=== PATIENT | female | born 1980 | race Two or more races ===

== ENCOUNTER 2017-07-06 14:04 | Emergency (ER) | payer MEDICAID, OTHER ==
[~2017-07-06] VITALS: Ht 157.5 cm; Wt 61.2 kg
[~2017-07-06 14:04] MED LIST: ACETAMINOPHEN-1 EAC1 ORAL; ALBUTEROL SULF8.5 GM INH; CYCLOBENZAPRINE10 MG ORAL; IBUPROFEN600 MG ORAL; NKM; NYSTATIN OINT15 GM TOPIC; PENICILLIN V P500 MG PO; PREDNISONE20 MG ORAL; PRILOSEC20 MG ORAL; PROMETHAZINE-C118 M1 ORAL; ZITHROMAX250 MG ORAL
[2017-07-06 14:18] VITALS: BP 103/67
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
[2017-07-06 14:50] VITALS: BP 103/67
== END 2017-07-06 14:50 | disposition home or self-care (01) ==
LOC: EMR 14:40
DX: M79.602 Pain in left arm (principal); F17.200 Nicotine dependence, unspecified, uncomplicated; Z83.3 Family history of diabetes mellitus; R07.9 Chest pain, unspecified
CPT/HCPCS: 82962; 93005; 99282

== ENCOUNTER 2017-12-26 19:00 | Emergency (ER) | payer MEDICAID ==
[~2017-12-26] VITALS: Ht 165.1 cm; Wt 59.0 kg
[2017-12-26 19:45] VITALS: BP 110/67
--- NOTE | 2017-12-26 20:24 | Emergency Room Report ---
History of Present Illness General Chief Complaint: Upper Respiratory Illness Source: Patient Present Illness HPI 37 YO Female presents to the ED c/o cough congestion body-aches, subjective fevers with chills and headaches x 2 days. Pt reports nasal and ear pressure. reports mother was ill contact who also got her son sick. Pt reports 9/[address] Denies measured high fevers, lethargy, neck pain/stiffness, irritability, photophobia dehydration, N/V/D. Denies Cp, Palpitations, LOC, AMS , seizures, paresthesias, or changes in Hearing or vision, no Sudden severe HUA. Pt. reports she did not receive Flu vaccination this year. Allergies: Coded Allergies: PENICILLINS (Verified Allergy, Intermediate, 12/26/17) Patient History Past Medical History: see triage record Past Surgical History: none Pertinent Family History: none Now: No Reviewed Nursing Documentation: PMH: Agreed, PSxH: Agreed Nursing Documentation-PMH Past Medical History: No Stated History Hx Asthma: No - BRONCHITIS Review of Systems All Other Systems: negative except mentioned in HPI Physical Exam Vital Signs Date Time Temp Pulse Resp B/P (MAP) Pulse Ox O2 Delivery O2 Flow Rate FiO2 12/26/17 19:16 99.8 99 16 110/67 99 Room Air 99.9 Sp02 EP Interpretation: reviewed, normal General Appearance: no apparent distress, alert, GCS 15, non-toxic Head: normocephalic, atraumatic ENT: hearing grossly normal, normal voice, TMs + canals normal, uvula midline, moist mucus membranes, nasal congestion, pharyngeal erythema, other - no tonsillar exudates. Neck: full range of motion, no meningismus, no bony tend Respiratory: chest non-tender, lungs clear, normal breath sounds, speaking full sentences Cardiovascular #1: regular rate, rhythm Musculoskeletal: back normal, gait/station normal, normal range of motion, non- tender Neurologic: alert, oriented x3, responsive, motor strength/tone normal, sensory intact, speech normal, grossly normal Psychiatric: judgement/insight normal Skin: normal color, no rash, warm/dry, well hydrated Lymphatic: no adenopathy Medical Decision Making PA Attestation Dr. Smith is my supervising physician whom pt. management has been discussed with. Diagnostic Impression: Primary Impression: Upper respiratory infection, viral ER Course 37 YO Female presents to the ED c/o cough congestion body-aches, subjective fevers with chills and headaches x 2 days. Pt reports nasal and ear pressure. reports mother was ill contact who also got her son sick. Pt reports 9/[address] Denies measured high fevers, lethargy, neck pain/stiffness, irritability, photophobia dehydration, N/V/D. Denies Cp, Palpitations, LOC, AMS , seizures, paresthesias, or changes in Hearing or vision, no Sudden severe HUA. Pt. reports she did not receive Flu vaccination this year. Ddx considered but are not limited to URI, pneumonia, PE, strep pharyngitis, meningitis, flu just to name a few. Vital signs: Pt. is afebrile, the remaining VS are WNL H&PE are most consistent with URI- no meningeal signs, oropharynx is not involved, no evidence of bacterial infection at this time. ORDERS: none required at this time, the diagnosis is clinical ED INTERVENTIONS: None required at this time. --PT. EDUCATION: Discussed antibiotic resistance with inappropriate prescribing of antibiotics for viral illnesses. Discussed signs and symptoms to indicate viral illness versus bacterial illness. DISCHARGE: At this time pt. is stable for d/c to home. Will provide printed patient care instructions, and any necessary prescriptions. Care plan and follow up instructions have been discussed with the patient prior to discharge. Last Vital Signs Date Time Temp Pulse Resp B/P (MAP) Pulse Ox O2 Delivery O2 Flow Rate FiO2 12/26/17 19:45 99.9 99 16 110/67 99 Room Air 99.9 Disposition: HOME, SELF-CARE Condition: Stable Scripts Guaifenesin (Guaifenesin) 1,200 Mg Tab.er.12h 1200 MG PO BID for 10 Days, #20 TAB Prov: Ratna Oneal P.A. 12/26/17 Acetaminophen* (TYLENOL EXTRA STRENGTH*) 500 Mg Tablet 500 MG ORAL Q6H Y for Mild Pain/Temp > 100.5, #20 TAB 0 Refills Prov: Ratna Oneal P.A. 12/26/17 Oxymetazoline HCl (Afrin) 15 Ml Elrama 2 SPRAY NASAL TWICE A DAY, #15 SPRAY DO NOT USE FOR MORE THAN 3 CONSECUTIVE DAYS. Prov: Ratna Oneal P.A. 12/26/17 Codeine/Promethazine Hcl* (PROMETHAZINE-CODEINE SYRUP*) 118 Ml Syrup 5 ML ORAL Q6H Y for For Cough, #120 ML 0 Refills Prov: Ratna Oneal 12/26/17 Patient Instructions: Upper Respiratory Infection, Adult Additional Instructions: Take medications as directed. Follow up with a Primary Care Provider in 3-5 days, even if your symptoms have resolved. --Please review list of primary care clinics, if you do not already have a primary care provider Return sooner to ED if new symptoms occur, or current symptoms become worse. Do not drink alcohol, drive, or operate heavy machinery while taking Cough Syrup as this may cause drowsiness. - Please note that this Emergency Department Report was dictated using [employer] calibrator technology software, occasionally this can lead to erroneous entry secondary to interpretation by the dictation equipment. Ratna Onela Dec 26, 2017 20:24
[2017-12-26] MEDS ORDERED: TYLENOL EXTRA500 MG ORAL (20:27)
[2017-12-26] MEDS ORDERED: PROMETHAZINE-C118 M1 ORAL (20:27)
[2017-12-26] MEDS ORDERED: AFRIN NASAL SPR30 ML NASAL (20:27)
[2017-12-26] MEDS ORDERED: GUAIFENESIN1200 MG PO (20:27)
[2017-12-26 20:45] VITALS: BP 110/67
== END 2017-12-26 21:00 | disposition home or self-care (01) ==
LOC: EMR 20:54
DX: J06.9 Acute upper respiratory infection, unspecified (principal); Z88.0 Allergy status to penicillin
CPT/HCPCS: 99284

== ENCOUNTER 2018-05-22 19:23 | Emergency (ER) | payer MEDICAID ==
[~2018-05-22] VITALS: Ht 157.5 cm; Wt 61.7 kg
[~2018-05-22 19:23] MED LIST changes: +AFRIN NASAL SPR30 ML NASAL; +GUAIFENESIN1200 MG PO; +TYLENOL EXTRA500 MG ORAL
[2018-05-22 19:48] VITALS: BP 99/68
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
[2018-05-22] MEDS ORDERED: LIDODERM700 M1 TOPIC (20:50)
[2018-05-22] MEDS ORDERED: ROBAXIN500 MG PO (20:50)
[2018-05-22] MEDS ORDERED: ZOFRAN ODT8 MG ORAL (20:50)
--- NOTE | 2018-05-22 20:58 | Diagnostic Imaging Report ---
EXAM: XR Right Shoulder Complete, 2 or More Views CLINICAL HISTORY: PAIN TECHNIQUE: 3 standard views of the right shoulder. COMPARISON: No relevant prior studies available. FINDINGS: Bones/joints: Unremarkable. No acute fracture. No dislocation. Soft tissues: Unremarkable. IMPRESSION: No acute findings
[2018-05-22] MEDS ORDERED: DiphenhydrAMINE 50mg/ml Inj IM ONE (21:15)
[2018-05-22 21:26] VITALS: BP 99/68
== END 2018-05-22 21:37 | disposition home or self-care (01) ==
LOC: EMR 21:22
DX: S16.1XXA Strain of muscle, fascia and tendon at neck level, initial encounter (principal); S20.211A Contusion of right front wall of thorax, initial encounter; M25.511 Pain in right shoulder; Z88.0 Allergy status to penicillin; V43.52XA Car driver injured in collision with other type car in traffic accident, initial encounter; Y92.410 Unspecified street and highway as the place of occurrence of the external cause
CPT/HCPCS: 73030; 96372; 99283; J1200

== ENCOUNTER 2019-03-21 15:05 | Emergency (ER) | payer MEDICAID, OTHER ==
[~2019-03-21] VITALS: Ht 160 cm; Wt 67.6 kg
[~2019-03-21 15:05] MED LIST changes: +LIDODERM700 M1 TOPIC; +ROBAXIN500 MG PO; +ZOFRAN ODT8 MG ORAL
[2019-03-21 15:40] VITALS: BP 112/76
--- NOTE | 2019-03-21 15:40 | NUR ---
ED Nurse Note: pt walked in due right flank pain started a month ago, pt stated she was dx with a kidney infection and was prescribed keflex and was taking it accordingly. pt denies burnig in urination. pt able to walk, denies trauma. pt able to give urine sample and was sent to lab. will continue to monitor
--- NOTE | 2019-03-21 15:44 | Emergency Room Report ---
History of Present Illness General Chief Complaint: Female Urogenital Problems Source: Patient Present Illness HPI 38 YO Female presents to the ED c/o 06/22 in severity right sided back/ flank pain that is constant in nature. Patient was recently diagnosed with UTI/ kidney infection and she finished a course of Keflex with no relief of her symptoms. She denies appreciable trauma or fall she states that she was working out regularly prior to the onset of her symptoms. She reports intermittent episodes of the pain shooting down the posterior aspect of the right leg. Patient reports moderate tenderness to the right sided lower back muscles. Denies abdominal pain or tenderness. Denies dysuria, frequency, or hematuria. Allergies: Coded Allergies: PENICILLINS (Verified Allergy, Intermediate, 12/26/17) Patient History Past Medical History: see triage record Past Surgical History: none Pertinent Family History: none Last Menstrual Period: IUD Now: No Reviewed Nursing Documentation: PMH: Agreed; PSxH: Agreed Nursing Documentation-PMH Past Medical History: No History, Except For Hx Asthma: No - BRONCHITIS Review of Systems All Other Systems: negative except mentioned in HPI Physical Exam Vital Signs Date Time Temp Pulse Resp B/P (MAP) Pulse Ox O2 Delivery O2 Flow Rate FiO2 03/21/19 15:22 98.2 84 17 112/76 (88) 98 Room Air Sp02 EP Interpretation: reviewed, normal General Appearance: no apparent distress, alert, GCS 15, non-toxic Head: normocephalic, atraumatic Eyes: bilateral eye normal inspection, bilateral eye PERRL ENT: hearing grossly normal, normal voice Neck: full range of motion Respiratory: lungs clear, normal breath sounds, speaking full sentences Cardiovascular #1: regular rate, rhythm Gastrointestinal: normal bowel sounds, non tender, soft, non-distended, no guarding Rectal: deferred Genitourinary: normal inspection, no CVA tenderness Musculoskeletal: back normal, gait/station normal, normal range of motion, tender - right gluteal and lumbar paraspinal musculature TTP. no midline ttp. Pain with flexion and twisting the torso to the right. pt. ambulatory without assistance. Neurologic: alert, oriented x3, responsive, motor strength/tone normal, sensory intact, normal gait, speech normal, grossly normal Psychiatric: judgement/insight normal Skin: normal color, no rash, warm/dry, well hydrated Medical Decision Making PA Attestation Dr. Gardner is my supervising Physician whom patient management has been discussed with. Diagnostic Impression: Primary Impression: Back pain Qualified Codes: M54.41 - Lumbago with sciatica, right side ER Course 38 YO Female presents to the ED c/o 06/22 in severity right sided back/ flank pain that is constant in nature. Patient was recently diagnosed with UTI/ kidney infection and she finished a course of Keflex with no relief of her symptoms. She denies appreciable trauma or fall she states that she was working out regularly prior to the onset of her symptoms. She reports intermittent episodes of the pain shooting down the posterior aspect of the right leg. Patient reports moderate tenderness to the right sided lower back muscles. Denies abdominal pain or tenderness. Denies dysuria, frequency, or hematuria. Ddx considered but are not limited to Diverticulitis, acute appy, diarrhea,UC, PUD, GE, pancreatitis, gallstone, kidney stone, pyelonephritis, UTI, obstruction. Vital signs: are WNL, pt. is afebrile H&PE are most consistent with ST musculoskeletal pain, will r/o UTI given recent hx. ORDERS: -UA: Unremarkable -Urine HCG: Negative ED INTERVENTIONS: -- Pyridium -Robaxin PO -Lidoderm -Toradol IM DISCHARGE: At this time pt. is stable for d/c to home. Will provide printed patient care instructions, and any necessary prescriptions. Care plan and follow up instructions have been discussed with the patient prior to discharge. Labs Test 03/21/19 15:42 Urine Color Pale yellow Urine Appearance Clear Urine pH 6 (4.5-8.0) Urine Specific [place] 1.010 (1.005-1.035) Urine Protein Negative (NEGATIVE) Urine Glucose (UA) Negative (NEGATIVE) Urine Ketones Negative (NEGATIVE) Urine Blood Negative (NEGATIVE) Urine Nitrite Negative (NEGATIVE) Urine Bilirubin Negative (NEGATIVE) Urine Urobilinogen Normal MG/DL (0.0-1.0) Urine Leukocyte Esterase Negative (NEGATIVE) Urine HCG, Qualitative Negative (NEGATIVE) Last Vital Signs Date Time Temp Pulse Resp B/P (MAP) Pulse Ox O2 Delivery O2 Flow Rate FiO2 03/21/19 15:22 98.2 84 17 112/76 (88) 98 Room Air Status: improved Disposition: HOME, SELF-CARE Condition: Stable Scripts Ibuprofen* (MOTRIN*) 600 Mg Tablet 600 MG ORAL THREE TIMES A DAY, #30 TAB 0 Refills Prov: Ratna Oneal 03/21/19 Cyclobenzaprine Hcl* (FLEXERIL*) 10 Mg Tablet 10 MG ORAL THREE TIMES A DAY for 7 Days, #21 TAB Prov: Ratna Oneal 03/21/19 Patient Instructions: Back Pain, Adult, [id number], Sciatica Additional Instructions: Take medications as directed. Follow up with a Primary Care Provider in 3-5 days, even if your symptoms have resolved. Return sooner to ED if new symptoms occur, or current symptoms become worse. - Please note that this Emergency Department Report was dictated using [employer]ified medical transcriptionist technology software, occasionally this can lead to erroneous entry secondary to interpretation by the dictation equipment. Ratna Oneal Mar 21, 2019 15:44
[2019-03-21] MEDS ORDERED: Phenazopyridine 200mg tab ORAL ONE (15:45)
[2019-03-21] MEDS ORDERED: Methocarbamol 750mg tab ORAL ONE (16:00)
[2019-03-21] MEDS ORDERED: Ketorolac 30mg Inj IM ONE (16:00)
--- NOTE | 2019-03-21 16:01 | NUR ---
ED Nurse Note: pt medicated and tolerated well.
[2019-03-21 16:09] LABS: APPEARANCE,URINE CLEAR; BILIRUBIN, URINE NEGATIVE (NEGATIVE); COLOR,URINE PALE YELLOW; GLUCOSE, URINE (UA) NEGATIVE (NEGATIVE); KETONES,URINE NEGATIVE (NEGATIVE); LEUKOCYTE ESTERASE ,URINE NEGATIVE (NEGATIVE); NITRITE,URINE NEGATIVE (NEGATIVE); PH,URINE 6 (4.5-8.0); PROTEIN,URINE NEGATIVE (NEGATIVE); UROBILINOGEN,URINE NORMAL MG/DL (0.0-1.0)
[2019-03-21] MEDS ORDERED: CYCLOBENZAPRINE10 MG ORAL (16:47)
[2019-03-21] MEDS ORDERED: IBUPROFEN600 MG ORAL (16:47)
[2019-03-21 16:53] VITALS: BP 112/76
== END 2019-03-21 16:55 | disposition home or self-care (01) ==
LOC: EMR 16:10
DX: M54.41 Lumbago with sciatica, right side (principal); Z88.0 Allergy status to penicillin
CPT/HCPCS: 81003; 81025; 96372; 99283; J1885

== ENCOUNTER 2019-05-17 14:51 | Emergency (ER) | payer MEDICAID, OTHER ==
[~2019-05-17] VITALS: Ht 157.5 cm; Wt 65.8 kg
[2019-05-17 14:59] VITALS: BP 120/69
--- NOTE | 2019-05-17 15:05 | NUR ---
ED Nurse Note: Patient walked into ED c/o coughing, congestion, sorethroat and right earache for 2 days. patient is alert awake x4 ambulatory.
--- NOTE | 2019-05-17 15:29 | Emergency Room Report ---
History of Present Illness General Chief Complaint: Upper Respiratory Illness Present Illness HPI 38-year-old female with no significant past medical history here complaining of 3 days of cough and congestion has started with sore throat. Patient reports having green phlegm and wheezing. Denies being a smoker. Also complains of right ear pain and reports that she has been swimming every day. Denies fever and chills, shortness of shortness of breath, chest pain, palpitation, abdominal pain, nausea vomiting. Has not taken medication for her symptoms. Allergies: Coded Allergies: PENICILLINS (Verified Allergy, Intermediate, 12/26/17) Patient History Past Medical History: see triage record Past Surgical History: unable to obtain Pertinent Family History: none Last Menstrual Period: 2018 Now: No Immunizations: UTD Reviewed Nursing Documentation: PMH: Agreed; PSxH: Agreed Nursing Documentation-PMH Hx Asthma: No - BRONCHITIS Review of Systems All Other Systems: negative except mentioned in HPI Physical Exam Vital Signs Date Time Temp Pulse Resp B/P (MAP) Pulse Ox O2 Delivery O2 Flow Rate FiO2 05/17/19 14:59 99.1 89 18 120/69 (86) 94 Room Air Sp02 EP Interpretation: reviewed, normal General Appearance: normal inspection, well appearing, no apparent distress, GCS 15, non-toxic Head: normocephalic, atraumatic Eyes: bilateral eye normal inspection, bilateral eye PERRL ENT: TMs + canals normal, uvula midline, pharyngeal erythema, tonsillar exudate , other - Erythema of external right ear canal and tragus tender to palpation Neck: normal inspection, full range of motion, supple Respiratory: chest non-tender, lungs clear, normal breath sounds, no rhonchi Cardiovascular #1: normal inspection, normal peripheral pulses, regular rate, rhythm, no murmur Gastrointestinal: normal inspection, non tender, soft Rectal: deferred Genitourinary: no CVA tenderness Musculoskeletal: normal inspection, back normal Neurologic: normal inspection, alert, oriented x3 Psychiatric: normal inspection, judgement/insight normal Skin: no rash, normal color Lymphatic: normal inspection, no adenopathy, axilla node tender (R) Medical Decision Making PA Attestation All diagnoses and treatment plans were reviewed and discussed with my supervising physician Dr. Streeter Diagnostic Impression: Primary Impression: Pharyngitis Additional Impression: Otitis externa ER Course 38-year-old female with no significant past medical history here complaining of 3 days of cough and congestion has started with sore throat. Patient reports having green phlegm and wheezing. Denies being a smoker. Also complains of right ear pain and reports that she has been swimming every day. Denies fever and chills, shortness of shortness of breath, chest pain, palpitation, abdominal pain, nausea vomiting. Has not taken medication for her symptoms. Ddx considered but are not limited to: strep pharyngitis, URI, tonsilitis, peritonsillar absacess, influneza Vital signs: are WNL, pt. is afebrile H&PE are most consistent with: Pharyngitis and otitis externa ORDERS: Corticosporin eardrops, Z-Hari, Phenergan, albuterol inhaler ED INTERVENTIONS: None required at this time. DISCHARGE: At this time pt. is stable for d/c to home. Will provide printed patient care instructions, and any necessary prescriptions. Care plan and follow up instructions have been discussed with the patient prior to discharge. Take medication as directed follow-up with your primary care provider if worsening symptoms return to the emergency room Last Vital Signs Date Time Temp Pulse Resp B/P (MAP) Pulse Ox O2 Delivery O2 Flow Rate FiO2 05/17/19 14:59 99.1 89 18 120/69 94 Room Air Disposition: HOME, SELF-CARE Condition: Stable Scripts Albuterol Sulfate* (PROAIR HFA*) 8.5 Gm Hfa.aer.ad 2 PUFFS INH Q6H, #8.5 GM 0 Refills Prov: Jaylen Alvarado 05/17/19 Promethazine Hcl (PROMETHAZINE HCL*) 6.25 Mg/5 Ml Syrup 5 ML ORAL Q6H, #120 ML 0 Refills Prov: Jaylen Alvarado 05/17/19 Neomycin/Polymyxin B Sulf/Hc* (CORTISPORIN EAR SOLUTION*) 10 Ml Solution 4 DROP RIGHT EAR QID, #10 ML 0 Refills Prov: Jaylen Alvarado 05/17/19 Azithromycin* (ZITHROMAX*) 250 Mg Tablet 250 MG ORAL DAILY, #6 TAB 0 Refills Take two tables once daily for 1 day, then one tablet once daily for 4 days. Prov: Jaylen Alvarado 05/17/19 Patient Instructions: Otitis Externa, [id number], Pharyngitis, [id number] Additional Instructions: Take medication as directed follow-up with your primary care provider avoid swimming for 7 to 10 days. Follow-up with your primary care provider if worsening symptoms return to the emergency Jaylen Alvarado May 17, 2019 15:29
[2019-05-17] MEDS ORDERED: PROMETHAZI6.25 MG/1 ORAL (15:33)
[2019-05-17] MEDS ORDERED: CORTISPORIN EAR10 ML RIGHT EAR (15:33)
[2019-05-17] MEDS ORDERED: PROAIR HFA8.5 GM INH (15:33)
[2019-05-17] MEDS ORDERED: ZITHROMAX250 MG ORAL (15:33)
[2019-05-17 15:39] VITALS: BP 120/69
--- NOTE | 2019-05-17 15:39 | NUR ---
ER DISCHARGE NOTE: Patient is cleared to be discharged per ROSALIO BARBOUR, pt is aox4, on room air, with stable vital signs. pt was given dc and prescription instructions, pt was able to verbalize understanding, pt id band removed without complications. pt is able to ambulate with steady gait. pt took all belongings.
== END 2019-05-17 15:39 | disposition home or self-care (01) ==
LOC: EMR 15:30
DX: H60.91 Unspecified otitis externa, right ear (principal); J02.9 Acute pharyngitis, unspecified
CPT/HCPCS: 99282

== ENCOUNTER 2019-07-06 12:54 | Emergency (ER) | payer MEDICAID ==
[~2019-07-06] VITALS: Ht 160 cm; Wt 68.0 kg
[~2019-07-06 12:54] MED LIST changes: +CORTISPORIN EAR10 ML RIGHT EAR; +PROAIR HFA8.5 GM INH; +PROMETHAZI6.25 MG/1 ORAL
[2019-07-06 13:00] VITALS: BP 95/67
--- NOTE | 2019-07-06 13:09 | NUR ---
ED Nurse Note: Pt came in due to lower abd. pain with pressure when she urinates started friday. Denies N/V and hematuria. AAO x4 and ambulatory.
[2019-07-06 13:41] LABS: APPEARANCE,URINE CLEAR; BILIRUBIN, URINE NEGATIVE (NEGATIVE); COLOR,URINE PALE YELLOW; GLUCOSE, URINE (UA) NEGATIVE (NEGATIVE); KETONES,URINE NEGATIVE (NEGATIVE); LEUKOCYTE ESTERASE ,URINE 1+ (NEGATIVE); NITRITE,URINE NEGATIVE (NEGATIVE); PH,URINE 6.5 (4.5-8.0); PROTEIN,URINE NEGATIVE (NEGATIVE); UROBILINOGEN,URINE NORMAL MG/DL (0.0-1.0)
[2019-07-06] MEDS ORDERED: Morphine Sulfate 4mg/ml Inj (IV USE ONLY) IVP ONE (13:45)
[2019-07-06] MEDS ORDERED: Mylanta II UD 30ml ORAL ONE (13:45)
[2019-07-06 13:59] LABS: BASOPHILS % (AUTO) 0.7 % (0.0-2.0); EOSINOPHILS % (AUTO) 1.5 % (0.0-3.0); HEMOGLOBIN 15.4 G/DL (12.0-16.0); LYMPHOCYTES % (AUTO) 20.8 % (20.0-45.0); MEAN CORPUSCULAR VOLUME 90 FL (80-99); MONOCYTES % (AUTO) 7.2 % (1.0-10.0); NEUTROPHILS % (AUTO) 69.7 % (45.0-75.0); PLATELET COUNT 273 K/UL (150-450); RED BLOOD COUNT 5.12 M/UL (4.20-5.40); RED CELL DISTRIBUTION WIDTH 11.6 % (11.6-14.8)
[2019-07-06 14:10] LABS: ANION GAP 10 mmol/L (5-15); BLOOD UREA NITROGEN 8 mg/dL (7-18); CALCIUM 9.3 MG/DL (8.5-10.1); CARBON DIOXIDE 27 MMOL/L (21-32); CHLORIDE 107 MMOL/L (98-107); CREATININE 0.7 MG/DL (0.55-1.30); POTASSIUM 3.9 MMOL/L (3.5-5.1); SODIUM 144 MMOL/L (136-145)
--- NOTE | 2019-07-06 14:11 | Emergency Room Report ---
History of Present Illness General Chief Complaint: Abdominal Pain Present Illness HPI 38 YO Female presents to the ED C/O 9 out of 10 severity lower abdominal pain, cramping and nausea since Friday ( 3 days). She denies episodes of vomiting she reports when she went to attempt to go to the bathroom she had sudden onset of her pain. Patient initially felt the urge to have a bowel movement with gargling in her stomach but then on attempt to have a BM she had severe pain in the lower uterus area. Patient denies she states she is on an IUD and her partner is sterile. She denies fevers, chills, recent travel or ill contacts with similar symptoms. She denies vaginal discharge she reports she has intermittent spotting but because of the IUD she does not have regular periods. She denies dysuria, urinary frequency or urgency. Allergies: Coded Allergies: PENICILLINS (Verified Allergy, Intermediate, 12/26/17) Patient History Past Medical History: see triage record Past Surgical History: none Pertinent Family History: none Last Menstrual Period: iud Now: No Reviewed Nursing Documentation: PMH: Agreed; PSxH: Agreed Nursing Documentation-PMH Hx Asthma: No - BRONCHITIS Review of Systems All Other Systems: negative except mentioned in HPI Physical Exam Vital Signs Date Time Temp Pulse Resp B/P (MAP) Pulse Ox O2 Delivery O2 Flow Rate FiO2 07/06/19 13:00 98.1 93 20 95/67 (76) 98 Room Air Sp02 EP Interpretation: reviewed, normal General Appearance: no apparent distress, alert, GCS 15, non-toxic Head: normocephalic, atraumatic Eyes: bilateral eye normal inspection, bilateral eye PERRL ENT: hearing grossly normal, normal voice Neck: full range of motion Respiratory: lungs clear, normal breath sounds, no respiratory distress, no wheezing, speaking full sentences Cardiovascular #1: regular rate, rhythm Gastrointestinal: soft, non-distended, tenderness - ttp moderate in the uterus area and adnexa bilaterally, very mild ttp in the LLQ and RLQ, no epigastric or upper quadrant pain. , other - hyperactive bowel sounds. Rectal: deferred Genitourinary: normal inspection, no CVA tenderness Musculoskeletal: back normal, gait/station normal, normal range of motion, non- tender Neurologic: alert, oriented x3, responsive, motor strength/tone normal, sensory intact, normal gait, speech normal, grossly normal Psychiatric: judgement/insight normal Skin: no rash Lymphatic: no adenopathy Medical Decision Making PA Attestation Dr. Bae is my supervising Physician whom patient management has been discussed with. Diagnostic Impression: Primary Impression: Abdominal pain of unknown etiology ER Course 38 YO Female presents to the ED C/O 9 out of 10 severity lower abdominal pain, cramping and nausea since Friday ( 3 days). She denies episodes of vomiting she reports when she went to attempt to go to the bathroom she had sudden onset of her pain. Patient initially felt the urge to have a bowel movement with gargling in her stomach but then on attempt to have a BM she had severe pain in the lower uterus area. Patient denies she states she is on an IUD and her partner is sterile. She denies fevers, chills, recent travel or ill contacts with similar symptoms. She denies vaginal discharge she reports she has intermittent spotting but because of the IUD she does not have regular periods. She denies dysuria, urinary frequency or urgency. Ddx considered but are not limited to Diverticulitis, acute appy, diarrhea,UC, PUD, GE, pancreatitis, gallstone, ovarian torsion, ectopic , PID tubo-ovarian abscess. Vital signs: are WNL, pt. is afebrile H&PE are most consistent with [ ] ORDERS: -CBC, CMP, LIPASE: WNL -UA: WNL -URINE HCG: Negative ED INTERVENTIONS: - 1 Liter NS Bolus - 4mg IV Morphine -PT. is tolerating oral fluids, NAD and non-toxic in appearance, given negative ED work up pt. is stable to be closely followed and have further evaluation by [facility]/ PCP -I do not identify an emergent condition at this time. With current presentation , pt. is stable for close outpatient follow up and conservative treatment. D/ w pt. to return promptly to ED with worsening or new symptoms.- Pt. verbalizes' understanding and agreement with proposed treatment plan. DISCHARGE: At this time pt. is stable for d/c to home. Will provide printed patient care instructions, and any necessary prescriptions. Care plan and follow up instructions have been discussed with the patient prior to discharge. Labs Test 07/06/19 13:06 07/06/19 13:40 Urine Color Pale yellow Urine Appearance Clear Urine pH 6.5 (4.5-8.0) Urine Specific [place] 1.005 (1.005-1.035) Urine Protein Negative (NEGATIVE) Urine Glucose (UA) Negative (NEGATIVE) Urine Ketones Negative (NEGATIVE) Urine Blood Negative (NEGATIVE) Urine Nitrite Negative (NEGATIVE) Urine Bilirubin Negative (NEGATIVE) Urine Urobilinogen Normal MG/DL (0.0-1.0) Urine Leukocyte Esterase 1+ (NEGATIVE) Urine RBC 0-2 /HPF (0 - 2) Urine WBC 0-2 /HPF (0 - 2) Urine Squamous Epithelial Cells Occasional /LPF Urine Bacteria Few /HPF (NONE) Urine HCG, Qualitative Negative (NEGATIVE) White Blood Count 12.0 K/UL (4.8-10.8) Red Blood Count 5.12 M/UL (4.20-5.40) Hemoglobin 15.4 G/DL (12.0-16.0) Hematocrit 46.0 % (37.0-47.0) Mean Corpuscular Volume 90 FL (80-99) Mean Corpuscular Hemoglobin 30.1 PG (27.0-31.0) Mean Corpuscular Hemoglobin Concent 33.6 G/DL (32.0-36.0) Red Cell Distribution Width 11.6 % (11.6-14.8) Platelet Count 273 K/UL (150-450) Mean Platelet Volume 6.4 FL (6.5-10.1) Neutrophils (%) (Auto) 69.7 % (45.0-75.0) Lymphocytes (%) (Auto) 20.8 % (20.0-45.0) Monocytes (%) (Auto) 7.2 % (1.0-10.0) Eosinophils (%) (Auto) 1.5 % (0.0-3.0) Basophils (%) (Auto) 0.7 % (0.0-2.0) Sodium Level 144 MMOL/L (136-145) Potassium Level 3.9 MMOL/L (3.5-5.1) Chloride Level 107 MMOL/L (98-107) Carbon Dioxide Level 27 MMOL/L (21-32) Anion Gap 10 mmol/L (5-15) Blood Urea Nitrogen 8 mg/dL (7-18) Creatinine 0.7 MG/DL (0.55-1.30) Estimat Glomerular Filtration Rate > 60 mL/min (>60) Glucose Level 97 MG/DL (74-106) Calcium Level 9.3 MG/DL (8.5-10.1) Total Bilirubin 0.5 MG/DL (0.2-1.0) Aspartate Amino Transf (AST/SGOT) 26 U/L (15-37) Alanine Aminotransferase (ALT/SGPT) 46 U/L (12-78) Alkaline Phosphatase 69 U/L (46-116) Total Protein 7.9 G/DL (6.4-8.2) Albumin 4.1 G/DL (3.4-5.0) Globulin 3.8 g/dL Albumin/Globulin Ratio 1.1 (1.0-2.7) Lipase 161 U/L (73-393) CT/MRI/US Diagnostic Results CT/MRI/US Diagnostic Results : Imaging Test Ordered: Pelvic US Impression "No acute findings appreciated. Intrauterine device in good position. Moderate free fluid which may be physiologic." --- Per official radiology report - Please see report for specific details. Last Vital Signs Date Time Temp Pulse Resp B/P (MAP) Pulse Ox O2 Delivery O2 Flow Rate FiO2 07/06/19 13:07 85 16 Room Air 07/06/19 13:00 98.1 95/67 98 Status: improved Disposition: HOME, SELF-CARE Condition: Stable Scripts Ibuprofen* (MOTRIN*) 600 Mg Tablet 600 MG ORAL THREE TIMES A DAY, #30 TAB 0 Refills Prov: Ratna Oneal 07/06/19 Tramadol Hcl* (ULTRAM*) 50 Mg Tablet 50 MG ORAL Q6H PRN for For Pain, #12 TAB 0 Refills Prov: Ratna Oneal 07/06/19 [facility]: [facility],REFERRING (PCP) Patient Instructions: Abdominal Pain, Adult Ratna Oneal Jul 06, 2019 14:10
[2019-07-06 14:14] LABS: ALANINE AMINOTRANSFERASE 46 U/L (12-78); ALBUMIN 4.1 G/DL (3.4-5.0); ALBUMIN/GLOBULIN RATIO 1.1 (1.0-2.7); ALKALINE PHOSPHATASE 69 U/L (46-116); ASPARTATE AMINO TRANSFERASE 26 U/L (15-37); BILIRUBIN,TOTAL 0.5 MG/DL (0.2-1.0)
--- NOTE | 2019-07-06 15:00 | NUR ---
ED Nurse Note: US staff at the bed side.
[2019-07-06 16:00] VITALS: BP 110/75
--- NOTE | 2019-07-06 16:14 | Diagnostic Imaging Report ---
Indication: 38 show female with intrauterine device. Pelvic pain Technique: Grayscale and duplex Doppler imaging of the pelvis performed utilizing a transabdominal and endovaginal scan. Comparison: None Findings: Uterus is slightly heterogeneous, retroverted, and there is an intrauterine device which appears to be in good position. Uterus measures 6. 854.4 x 4.1 cm. There is a moderate amount of free fluid within the cul-de-sac. The ovaries appear normal with dopplerable blood flow. Right ovary measures 2.4 x 1.5 x 2.7 cm. Left ovary 2.8 x 2.1 x 2.6 cm. IMPRESSION: No acute findings appreciated. Intrauterine device in good position. Moderate free fluid which may be physiologic.
[2019-07-06] MEDS ORDERED: IBUPROFEN600 MG ORAL (17:39)
[2019-07-06] MEDS ORDERED: TRAMADOL HCL50 MG ORAL (17:39)
[2019-07-06] MEDS ORDERED: traMADol 50mg tab ORAL ONE (17:45)
[2019-07-06 17:47] VITALS: BP 115/78
--- NOTE | 2019-07-06 17:47 | NUR ---
ER DISCHARGE NOTE: Patient is cleared to be discharged per PA, pt is aox4, on room air, with stable vital signs. pt was given dc and prescription instructions, pt was able to verbalize understanding, pt id band and iv site removed without complications. pt is able to ambulate with steady gait. pt took all belongings and left with her family members.
== END 2019-07-06 17:47 | disposition home or self-care (01) ==
LOC: EMR 13:22
DX: R10.30 Lower abdominal pain, unspecified (principal); Z88.0 Allergy status to penicillin
CPT/HCPCS: 36415; 76830; 76856; 80053; 81003; 81025; 83690; 85025; 87210; 96361; 96374; J2270; Z7502; 99284

== ENCOUNTER 2019-08-15 14:01 | Emergency (ER) | payer MEDICAID ==
[~2019-08-15] VITALS: Ht 162.6 cm; Wt 67.6 kg
[~2019-08-15 14:01] MED LIST changes: +TRAMADOL HCL50 MG ORAL
[2019-08-15 14:48] VITALS: BP 104/67
--- NOTE | 2019-08-15 14:50 | NUR ---
ED Nurse Note: Pt came in from home due to R 4th finger pain, slammed on door 2 weeks ago. Pain 7/10 at this time. Will cont to monitor.
--- NOTE | 2019-08-15 14:51 | Emergency Room Report ---
History of Present Illness General Chief Complaint: Pain Present Illness HPI 38-year-old female with no symptom past medical history here complaining of pain right ring finger x2 weeks. Patient reports that she accidentally pulled the right finger 2 weeks ago and has not yet seen a doctor for it. Patient reports that she was shaking hands this morning at [employer] and she noticed that her pain is back and now as her entire hand. Rating the pain 7 out of 10 without radiation. Denies tingling and numbness. Patient is able to bend right finger no signs of deformity is noted. Patient denies any direct fall or injury to the hand. Has not taken medication for symptom relief other than ibuprofen. Denies chest pain, shortness of breath, palpitation, no other associated symptoms. Allergies: Coded Allergies: No Known Allergies (Unverified , 08/15/19) Patient History Past Medical History: see triage record Past Surgical History: unable to obtain Pertinent Family History: none Now: No Immunizations: UTD Reviewed Nursing Documentation: PMH: Agreed; PSxH: Agreed Nursing Documentation-PMH Hx Asthma: No - HYPERLIPDEMIA Review of Systems All Other Systems: negative except mentioned in HPI Physical Exam Vital Signs Date Time Temp Pulse Resp B/P (MAP) Pulse Ox O2 Delivery O2 Flow Rate FiO2 08/15/19 14:13 98.4 86 20 104/67 (79) 96 08/15/19 14:48 Room Air Sp02 EP Interpretation: reviewed, normal General Appearance: no apparent distress, alert, GCS 15, non-toxic Head: normocephalic, atraumatic Eyes: bilateral eye normal inspection, bilateral eye PERRL ENT: hearing grossly normal, normal pharynx, no angioedema, normal voice Neck: full range of motion, supple/symm/no masses Respiratory: chest non-tender, lungs clear, normal breath sounds, no rhonchi, no wheezing, speaking full sentences Cardiovascular #1: normal inspection, normal peripheral pulses, regular rate, rhythm, no edema, no murmur, normal capillary refill Cardiovascular #2: 2+ radial (R), 2+ radial (L) Gastrointestinal: normal bowel sounds, non tender, soft, non-distended, no guarding, no rebound Rectal: deferred Genitourinary: normal inspection, no CVA tenderness Musculoskeletal: back normal, digits/nails normal, gait/station normal, normal range of motion, non-tender Neurologic: alert, oriented x3, responsive, motor strength/tone normal, sensory intact, speech normal Psychiatric: judgement/insight normal, memory normal, mood/affect normal, no suicidal/homicidal ideation Skin: no rash Lymphatic: no adenopathy Procedures Splinting Splinting : Consent: Verbal Location: Right ring finger Pre-Made Type: metal Pre-Proc Neuro Vasc Exam: normal Post-Proc Neuro Vasc Exam: normal Patient Tolerated: Well Complications: None Medical Decision Making PA Attestation All my diagnosis and treatment plans were reviewed ad discussed with my supervising physician Dr. Gardner Diagnostic Impression: Primary Impression: Finger sprain ER Course 38-year-old female with no symptom past medical history here complaining of pain right ring finger x2 weeks. Patient reports that she accidentally pulled the right finger 2 weeks ago and has not yet seen a doctor for it. Patient reports that she was shaking hands this morning at [employer] and she noticed that her pain is back and now as her entire hand. Rating the pain 7 out of 10 without radiation. Denies tingling and numbness. Patient is able to bend right finger no signs of deformity is noted. Patient denies any direct fall or injury to the hand. Has not taken medication for symptom relief other than ibuprofen. Denies chest pain, shortness of breath, palpitation, no other associated symptoms. Ddx considered but are not limited to: Hand sprain, hand sprain, hand fracture, finger sprain, finger fracture, finger deformity, finger strain Vital signs: are WNL, pt. is afebrile H&PE are most consistent with : Finger sprain ORDERS: Hand x-ray, ibuprofen ED INTERVENTIONS: Symptomatic metal splint to the right index finger DISCHARGE: At this time pt. is stable for d/c to home. Will provide printed patient care instructions, and any necessary prescriptions. Care plan and follow up instructions have been discussed with the patient prior to discharge. Patient to follow-up with primary care provider for referral to product test specialist and further imaging is needed at this time patient was explained that even if there was a fracture it would have most likely wrongfully fused and needs further assessment by hand specialist. Patient agrees. Also return to emergency room if worsening symptoms Other X-Ray Diagnostic Results Other X-Ray Diagnostic Results : X-Ray ordered: Right hand # of Views/Limited Vs Complete: 3 View Indication: Pain EP Interpretation: Yes PA Xray: Interpretation reviewed, by supervising MD, and agrees with findings. Interpretation: no dislocation, no soft tissue swelling, no fractures Impression: No acute disease Electronically Signed by: Jaylen Hurley PA-C Last Vital Signs Date Time Temp Pulse Resp B/P (MAP) Pulse Ox O2 Delivery O2 Flow Rate FiO2 08/15/19 14:48 98.4 71 19 104/67 100 Room Air Disposition: HOME, SELF-CARE Condition: Stable Scripts Ibuprofen (Ibu) 800 Mg Tablet 800 MG PO BID, #20 TAB Prov: Jaylen Alvarado 08/15/19 Patient Instructions: Finger Sprain, [id number] Additional Instructions: Keep symptomatic splint on when working, follow-up with your primary care provider for referral to specialist. If worsening symptoms return to the emergency room Jaylen Alvarado Aug 15, 2019 14:51
[2019-08-15] MEDS ORDERED: IBU800 MG PO (14:52)
[2019-08-15 14:58] VITALS: BP 104/67
--- NOTE | 2019-08-15 14:58 | NUR ---
ER DISCHARGE NOTE: Patient is cleared to be discharged per ERMD, pt is aox4, on room air, with stable vital signs. pt was given dc and prescription instructions, pt was able to verbalize understanding, pt id band removed. pt is able to ambulate with steady gait. pt took all belongings.
--- NOTE | 2019-08-16 13:15 | Diagnostic Imaging Report ---
Indication: Right hand pain Findings: 3 views of the right hand were obtained. Normal bony mineralization and alignment are demonstrated. Tiny focus of calcium noted adjacent to the ulnar styloid. No acute fractures, erosions, or periosteal reaction are seen. Soft tissues are unremarkable. Impression: No acute findings.
== END 2019-08-15 14:58 | disposition home or self-care (01) ==
LOC: EMR 14:30
DX: S63.619A Unspecified sprain of unspecified finger, initial encounter (principal); E78.5 Hyperlipidemia, unspecified; X50.9XXA Other and unspecified overexertion or strenuous movements or postures, initial encounter; Y92.9 Unspecified place or not applicable
CPT/HCPCS: 73130; Z7502; 99283